=== PATIENT | female | born 1965 | race Hispanic/Latino ===

== ENCOUNTER 2020-02-10 18:01 | Emergency (ER) | payer BC, SELFPAY ==
--- NOTE | ~2020-02-10 | XR_ITS ---
EXAMINATION: XR foot LT min 3V EXAM DATE: 02/10/2020 18:39 INDICATION: Initial encounter following injury, with pain of the left foot. TECHNIQUE: Left foot dorsoplantar, lateral and oblique projections obtained and reviewed. There is n o prior study for comparison. FINDINGS: Left metatarsal bones unremarkable. There is acute fracture at the head of the left 2nd proximal phalanx, extending into the middle of the proximal interphalangeal joint. Acute closed postt raumatic fracture. No displacement or angulation. There is overlying soft tissue swelling. IMPRESSION: Acute left 2nd proximal phalangeal head intra-articular fracture. Reviewed, dictated and finalized at location A.
--- NOTE | 2020-02-10 18:03 | ED.GENADULT ---
HPI - General Adult General Chief complaint: Extremity Injury, Lower Stated complaint: Left Toe Pain Time Seen by Provider: 02/10/20 18:23 Source: patient Mode of arrival: ambulatory Limitations: no limitations History of Present Illness HPI narrative: 54-year-old female patient [facility] with complaints of left foot pain specifically the second and third toe. Patient states that she slipped down some steps on Thursday and hit her left foot. Patient states that she tried ice it but went to work on Thursday. Patient states she took yesterday off and tried to stay off it and ice it all day and try has tried to stay off it today. Patient states it continues to be painful and now there is been purple bruising is occurred. Patient wanted come and get checked out to see if she has any toe fractures. Review of Systems Review of Systems: Narrative: CONSTITUTIONAL: Denies fever, chills, or sweats. EYES: Denies visual changes, redness, or discharge. ENT: Denies rhinorrhea, congestion, sore throat, or otalgia. CARDIOVASCULAR: Denies chest pain, palpitations, or edema. RESPIRATORY: Denies cough or dyspnea. GASTROINTESTINAL: Denies abdominal pain, nausea, vomiting, or diarrhea. GENITOURINARY: Denies dysuria or hematuria. SKIN: Denies rash or itching. MUSCULOSKELETAL: Denies back pain, joint pain, or myalgia. Positive left foot pain NEUROLOGIC: Denies headache, numbness, or weakness. PSYCHIATRIC: Denies anxiety or depression. PMFSH Comments At the time of my signature I agree with nursing past medical history, surgical, social, and family history. There is no relevant family history pertinent to the presenting complaint. Exam Narrative: Exam Narrative: GENERAL: Well-appearing, well-nourished, and in no acute distress. HEAD: Normocephalic, atraumatic. EYES: PERRLA and EOMI. ENT: Nares clear, no rhinorrhea or epistaxis. Mucous membranes moist. NECK: Supple. No lymphadenopathy CHEST: Clear to auscultation. No respiratory distress. HEART: Regular rate and rhythm. No murmur heard. Normal peripheral pulses. ABDOMEN: Soft, nontender, nondistended, normal active bowel sounds. EXTREMITIES: Patient able to bear weight and ambulate without pain. No surface trauma, purple ecchymosis noted to the second and third toe as well as the fifth toe. There is some ecchymosis noted at the base of the second and third and fourth toe. No erythema, lesions, ulcers or break in skin integrity. The L foot is without obvious asymmetry or deformity when compared to the R foot. No bony step-off, tender to palpation over the second and third toe, no pain noted to the midfoot or hindfoot or sole. Normal plantar/dorsiflexion, inversion/eversion. Distal motor and neurovascular status are intact SKIN: Warm, dry, no rash. NEURO: No focal deficits. Alert and oriented x3. Course Reevaluation(s) Reevaluation #1: Reevaluated patient after her x-ray resulted. Discussed with her that it does appear that her second toe is fractured. Discussed with patient that we will go ahead and reg tape the toes as well as put her in a postop shoe to help with pain and comfort. Discussed with her she can take Tylenol and ibuprofen as needed for pain, keep it elevated and ice it as needed. Discussed with patient I will go ahead and provide her Dr. Lucero's number who is the Ortho that is on-call today and she can follow-up with him as needed. Discussed with patient that we will also provide her a copy of the x-ray report along with the CD. Patient verbalized understanding denies any other questions or concerns at this time. Date: 02/10/20 Time: 18:51 Vital Signs Vital signs: Vital Signs Temperature 36.6 C 02/10/20 18:16 Pulse Rate 75 02/10/20 18:16 Respiratory Rate 16 02/10/20 18:16 Blood Pressure 123/74 02/10/20 18:16 Pulse Oximetry 100 02/10/20 18:16 Temperature 36.6 C 02/10/20 18:16 Pulse Rate 75 02/10/20 18:16 Respiratory Rate 16 02/10/20 1
[2020-02-10 18:16] VITALS: BP 123/74; PULSE 75; RESP 16; TEMP 36.6; O2SAT 100
== END 2020-02-10 18:59 | disposition home or self-care (01) ==
PROVIDERS: Emergency Provider Nurse Practitioner Family
DX: S92.515A Nondisplaced fracture of proximal phalanx of left lesser toe(s), initial encounter for closed fracture (principal); W10.9XXA Fall (on) (from) unspecified stairs and steps, initial encounter
CPT/HCPCS: 73630; 99214; G0463